=== PATIENT | female | born 1970 | race Caucasian/White ===

== ENCOUNTER 2019-01-12 17:20 | Observation (INO) | payer MEDICAID ==
[~2019-01-12] VITALS: Ht 175.3 cm; Wt 163.6 kg
--- NOTE | ~2019-01-12 | DS ---
PATIENT:GREGORY GARCIA :68 MEDICAL RECORD: [id number] DISCHARGE SUMMARY ADMISSION DATE: 01/12/19 DISCHARGE DATE: 01/13/19 DATE OF ADMISSION: 01/12/2019 DATE OF DISCHARGE: 01/13/2019 ADMISSION DIAGNOSES: 1. Acute abdomen, rule out appendicitis. 2. Morbid obesity. DISCHARGE DIAGNOSES: 1. Urinary tract infection. 2. Morbid obesity. PROCEDURE: None. CONSULTATIONS: None. REPORT OF HOSPITALIZATION: The patient was admitted to the hospital through the ER with findings concerning for possible acute appendicitis. The patient was evaluated overnight for leukocytosis and not given any antibiotics. The following morning, the leukocytosis was resolved and she never had any fever. Her pain continued to persist on the right flank and extending down to the right lower quadrant. Her urine showed positive leukocyte esterase and moderate bacteria with no signs of hematuria. She was then started on Bactrim for presumed UTI and her urine was sent for culture. By that afternoon, she was tolerating regular diet and said her pain was down to a 3. She did have improvement in her pain significantly on p.o. hydrocodone. The patient felt at that point that she was stable for discharge home. DISCHARGE INSTRUCTIONS: 1. Return to clinic or with her PCP if there is no improvement within 1 week. 2. Continue antibiotics to completion. DISCHARGE MEDICATIONS: Resume home medications with the inclusion of [place] 10 mg, dispensing 10, and Bactrim DS, dispensing 5, to be taken twice daily for 3 days. Follow up is with her PCP in 1 week if necessary. DIET: Regular. TRANSINT:[id number] Voice Confirmation ID: [id number] DOCUMENT ID: [id number] JOSE RIVER MD CC: [id number] DICTATION DATE: 01/13/19 1643 AIRPORT SCREENER: 01/14/19 0652 DIS IN 01/13/19 [id number] [place] [address]
[~2019-01-12 17:20] MED LIST: HYDROCODONE-APA1 TAB PO; IBUPROFEN200 MG PO; VIBRAMYCIN50 MG PO
[2019-01-12] MEDS ORDERED: ZYRTEC10 MG PO (17:29)
[2019-01-12] MEDS ORDERED: FISH OIL 1,0001 CA1 PO (17:29)
[2019-01-12] MEDS ORDERED: VITAMIN B-12250 MC3 PO (17:29)
[2019-01-12] MEDS ORDERED: ALEVE220 MG PO (17:29)
[2019-01-12 17:55] LABS: BASOPHILS 0.2 % (0-2); HEMATOCRIT 42.9 % (36.0-48.0); HEMOGLOBIN 14.3 g/dL (12-16); IMMATURE GRANULOCYTES 0.4 % (0-5); LYMPHOCYTES 28.3 % (15-50); MCH 31.6 pg (26.0-34.0); MCHC 33.3 g/dL (31.0-37.0); MCV 94.7 fL (80.0-100.0); MEAN PLATELET VOLUME 9.7 fL (7.4-10.4); MONOCYTES 4.9 % (2-11); NEUTROPHILS 64.2 % (40-80); PLATELET COUNT 335 10x3/uL (130-400); RBC 4.53 10x6/uL (4.00-5.40); WBC 12.6 10x3/uL (4.8-10.8)
[2019-01-12 18:09] LABS: HCG SERUM NEGATIVE (NEGATIVE)
[2019-01-12 18:15] LABS: ALBUMIN 3.9 g/dL (3.4-5.0); ALKALINE PHOSPHATASE 61 U/L (46-116); ALT (SGPT) 34 U/L (10-68); CALC OSMOLALITY 281 mosm/kg (275-300); CALCIUM 9.5 mg/dL (8.5-10.1); CARBON DIOXIDE 26.6 mmol/L (21.0-32.0); CHLORIDE - SERUM 104 mmol/L (98-107); CREATININE - SERUM 0.9 mg/dL (0.6-1.3); GLUCOSE 107 mg/dL (74-106); POTASSIUM - SERUM 3.9 mmol/L (3.5-5.1); PROTEIN - SERUM 7.8 g/dL (6.4-8.2); SODIUM 140 mmol/L (136-145); UREA NITROGEN 22 mg/dL (7-18); eGFR NON AFRICAN AMERICAN 70 mL/min (90-120)
[2019-01-12 18:20] LABS: AMYLASE - SERUM 19 U/L (25-115); LIPASE 81 U/L (73-393); TROPONIN-I < 0.017 ng/mL (0.000-0.060)
--- NOTE | 2019-01-12 18:58 | NUR ---
HAND OFF REPORT GIVEN TO CABRERA GALAN
[2019-01-12 19:27] LABS: APPEARANCE CLEAR (CLEAR); BACTERIA MODERATE /hpf (NONE SEEN); BILIRUBIN NEGATIVE (NEGATIVE); COLOR YELLOW (YELLOW); EPITHELIAL CELLS 0-5 /hpf (0-5); GLUCOSE NEGATIVE (NEGATIVE); KETONE NEGATIVE (NEGATIVE); NITRITE NEGATIVE (NEGATIVE); PROTEIN NEGATIVE (NEGATIVE); RED CELLS - URINE OCC /hpf (0-5); SPECIFIC GRAVITY 1.015 (1.005-1.020); UROBILINOGEN NORMAL (NORMAL); WHITE CELLS - URINE OCC /hpf (0-5)
[2019-01-12 21:12] VITALS: BP 132/78
--- NOTE | 2019-01-12 22:20 | NUR ---
RECEIVED PT FROM ER VIA W/C. ALERT AND ORIENTED X4. RESP EVEN AND NONLABORED. BBS CTA. ABD OBESE AND C/O PAIN IN RLQ SHARP AND RATES A 9. JUST RECEIVED MORPHINE AND ZOFRAN IN THE ER. DENIES N/V/D. NS @ 125 ML/HR INFUSING IN RT FOREARM WITHOUT DIFF. AMBULATORY. V/S STABLE. ACCOMPANIED BY SON. SR ELEVATED X2. CL IN REACH. ADVISED OF NPO AFTER MIDNIGHT. REQUESTS SANDWICH AT THIS TIME.
--- NOTE | 2019-01-13 00:09 | NUR ---
PT C/O SEVERE RLQ PAIN WORSE THAN A 10. NOTIFIED DR RIVER. NEW ORDER NOTED FOR MORPHINE PAINTER MAINTENANCE. EXPLAINED TO PT ON USE OF PAINTER MAINTENANCE PUMP. SHE VERBALIZED UNDERSTANDING. PAINTER MAINTENANCE VERIFIED PER THIS RAIL SPECIALIST AND JONEL PERRY. 2MG BOLUS GIVEN AT THIS TIME. CL IN REACH.
[2019-01-13 00:11] VITALS: BP 156/75; BMI 53.3
[2019-01-13 00:40] VITALS: BP 156/75
--- NOTE | 2019-01-13 02:08 | NUR ---
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 REPORTS PAIN IS INTERMITTENT. STATES SHE IS OK THOUGH. NO N/V NOTED. SR ELEVATED X2. CL IN REACH.
--- NOTE | 2019-01-13 04:05 | NUR ---
C/O NAUSEA. STATES SHE WAS OK UNTIL SHE GOT THE MORPHINE TONIGHT. MEDICATED WITH ZOFRAN ORDERED. STATES PAIN IS UNDER CONTROL AT THIS TIME. SLIGHTLY DROWSY. CL IN REACH.
[2019-01-13 05:21] VITALS: BP 128/63
[2019-01-13 07:21] LABS: BASOPHILS 0.3 % (0-2); EOSINOPHILS 1.9 % (0-7); HEMATOCRIT 40.3 % (36.0-48.0); HEMOGLOBIN 13.1 g/dL (12-16); IMMATURE GRANULOCYTES 0.2 % (0-5); LYMPHOCYTES 27.1 % (15-50); MCHC 32.5 g/dL (31.0-37.0); MCV 95.3 fL (80.0-100.0); MEAN PLATELET VOLUME 9.8 fL (7.4-10.4); MONOCYTES 5.7 % (2-11); NEUTROPHILS 64.8 % (40-80); PLATELET COUNT 373 10x3/uL (130-400); RBC 4.23 10x6/uL (4.00-5.40); RDW 14.2 % (11.5-14.5); WBC 9.6 10x3/uL (4.8-10.8)
[2019-01-13 07:46] LABS: ALBUMIN 3.5 g/dL (3.4-5.0); ALKALINE PHOSPHATASE 60 U/L (46-116); BILIRUBIN - TOTAL 0.68 mg/dL (0.2-1.3); CALC OSMOLALITY 283 mosm/kg (275-300); CALCIUM 8.8 mg/dL (8.5-10.1); CARBON DIOXIDE 26.1 mmol/L (21.0-32.0); CHLORIDE - SERUM 105 mmol/L (98-107); CREATININE - SERUM 0.7 mg/dL (0.6-1.3); GLUCOSE 116 mg/dL (74-106); POTASSIUM - SERUM 3.9 mmol/L (3.5-5.1); PROTEIN - SERUM 7.3 g/dL (6.4-8.2); SODIUM 141 mmol/L (136-145); UREA NITROGEN 19 mg/dL (7-18); eGFR NON AFRICAN AMERICAN > 90 mL/min (90-120)
[2019-01-13 07:48] LABS: ALT (SGPT) 49 U/L (10-68)
[2019-01-13 08:52] VITALS: BP 117/64
[2019-01-13 10:10] VITALS: Ht 175.3 cm; Wt 163.6 kg
[2019-01-13 12:20] VITALS: BP 113/57
[2019-01-13] MEDS ORDERED: BACTRIM DS PO (16:39)
[2019-01-13] MEDS ORDERED: NORCO-10 PO (16:39)
== END 2019-01-13 18:48 | disposition home or self-care (01) ==
LOC: D.ER 17:20 → OBSVTIME 21:23 → D.MS 21:23 → D.SDCHOLD 01-13 17:05 → D.MS 01-13 17:06
PROVIDERS: Family Medicine; ADMIT Surgery; ATTEND Surgery
DX: N39.0 Urinary tract infection, site not specified (principal); E66.01 Morbid (severe) obesity due to excess calories; Z68.43 Body mass index [BMI] 50.0-59.9, adult; Z72.0 Tobacco use

== ENCOUNTER 2020-11-08 22:37 | Emergency (ER) | payer BC ==
[~2020-11-08] VITALS: Ht 175.3 cm; Wt 190.9 kg
[~2020-11-08 22:37] MED LIST changes: +ALEVE220 MG PO; +BACTRIM DS PO; +FISH OIL 1,0001 CA1 PO; +NORCO-10 PO; +VITAMIN B-12250 MC3 PO; +ZYRTEC10 MG PO
[2020-11-08 22:49] VITALS: Ht 175.3 cm; Wt 190.9 kg
[2020-11-08 23:15] LABS: BASOPHILS 0.2 % (0-2); EOSINOPHILS 0.5 % (0-7); HEMATOCRIT 45.4 % (36.0-48.0); HEMOGLOBIN 14.8 g/dL (12-16); IMMATURE GRANULOCYTES 0.6 % (0-5); LYMPHOCYTE ABS# 2.17 10x3/uL (1.18-3.74); LYMPHOCYTES 12.2 % (15-50); MCH 30.7 pg (26.0-34.0); MCHC 32.6 g/dL (31.0-37.0); MCV 94.2 fL (80.0-100.0); MEAN PLATELET VOLUME 9.3 fL (7.4-10.4); MONOCYTES 5.2 % (2-11); NEUTROPHIL ABS# 14.47 10x3/uL (1.56-6.13); NEUTROPHILS 81.3 % (40-80); PLATELET COUNT 359 10x3/uL (130-400); RBC 4.82 10x6/uL (4.00-5.40); RDW 14.1 % (11.5-14.5); WBC 17.8 10x3/uL (4.8-10.8)
[2020-11-08 23:29] LABS: CALC OSMOLALITY 273 mosm/kg (275-300); CALCIUM 9.4 mg/dL (8.5-10.1); CARBON DIOXIDE 27.1 mmol/L (21.0-32.0); CHLORIDE - SERUM 99 mmol/L (98-107); CREATININE - SERUM 1.2 mg/dL (0.6-1.3); GLUCOSE 137 mg/dL (74-106); SODIUM 135 mmol/L (136-145); UREA NITROGEN 19 mg/dL (7-18); eGFR NON AFRICAN AMERICAN 50 mL/min (90-120)
[2020-11-08 23:37] LABS: BILIRUBIN NEGATIVE (NEGATIVE); KETONE NEGATIVE (NEGATIVE); NITRITE NEGATIVE (NEGATIVE); UROBILINOGEN NORMAL mg/dL (< 2)
[2020-11-08 23:39] LABS: ALBUMIN 3.7 g/dL (3.4-5.0); ALKALINE PHOSPHATASE 67 U/L (30-120); ALT (SGPT) 42 U/L (10-68); BILIRUBIN - TOTAL 0.52 mg/dL (0.2-1.3); PROTEIN - SERUM 7.9 g/dL (6.4-8.2)
[2020-11-08 23:39] LABS: BACTERIA FEW HPF (NONE SEEN); SQUAMOUS EPITHELIAL 0-5 HPF (0-4); WHITE CELLS - URINE 0-5 HPF (0-4)
[2020-11-08 23:44] LABS: LIPASE 46 U/L (73-393); TROPONIN-I < 0.017 ng/mL (0.000-0.060)
[2020-11-09] MEDS ORDERED: ZOFRAN ODT4 MG/UDTAB PO (00:52)
[2020-11-09] MEDS ORDERED: HYDROCODONE-AC1 EAC2 PO (00:52)
[2020-11-09] MEDS ORDERED: FLOMAX0.4 MG PO (00:52)
[2020-11-09 01:41] VITALS: BP 143/72
== END 2020-11-09 01:36 | disposition home or self-care (01) ==
LOC: D.ER 22:37
PROVIDERS: Family Medicine
DX: R10.11 Right upper quadrant pain (principal); N20.1 Calculus of ureter